=== PATIENT | female | born 1945 | race Asian ===

== ENCOUNTER 2018-04-14 14:22 | Day surgery (SDC) | payer MEDICAID ==
[~2018-04-14] VITALS: Ht 154.9 cm; Wt 54.6 kg
[~2018-04-14 14:22] MED LIST: CALC-729 PO; MECL12.584 PO; MULT-645 PO
[2018-04-14] MEDS ORDERED: normal saline 1000ml 1,000 ML IV SCH (15:05)
[2018-04-14] MEDS ORDERED: MECL12.584 PO (15:33)
[2018-04-14 15:59] VITALS: BP 138/73
[2018-04-14] MEDS ORDERED: LIDOcaine 1% (10mg/ml)w/preservative injection 20ml MDV ONE ×2 (17:09→17:21)
[2018-04-14 17:50] VITALS: BP 128/80
[2018-04-14] MEDS ORDERED: HYDROcodone/acetaminophen 10/325mg tab PO PRN (17:55)
[2018-04-14] MEDS ORDERED: HYDROcodone/acetaminophen 5mg/325mg tablet PO PRN (17:55)
[2018-04-14 18:05] VITALS: BP 137/83
[2018-04-14 18:20] VITALS: BP 140/77
[2018-04-14 18:35] VITALS: BP 136/76
== END 2018-04-14 19:05 | disposition home or self-care (01) ==
LOC: SSTAY O 14:22
PROVIDERS: ATTEND Internal Medicine Interventional Cardiology
DX: G45.9 Transient cerebral ischemic attack, unspecified (principal); I49.1 Atrial premature depolarization; G89.29 Other chronic pain; M19.90 Unspecified osteoarthritis, unspecified site; Z85.3 Personal history of malignant neoplasm of breast; Z90.12 Acquired absence of left breast and nipple; Z79.899 Other long term (current) drug therapy; Z82.0 Family history of epilepsy and other diseases of the nervous system
CPT/HCPCS: 33282; C1764; J2001; J7030; 99152

== ENCOUNTER 2019-02-17 15:36 | Emergency (ER) | payer MEDICAID ==
[~2019-02-17] VITALS: Ht 154.9 cm; Wt 56.0 kg
[~2019-02-17 15:36] MED LIST changes: -CALC-729 PO
[2019-02-17 16:13] LABS: BASOPHILS % (AUTO) 0.5 % (0-1); EOSINOPHILS % (AUTO) 1.3 % (0-6); HEMATOCRIT 36.6 % (35.0-45.0); HEMOGLOBIN 12.5 g/dl (12.0-16.0); LYMPHOCYTES % (AUTO) 29.8 % (21-51); MEAN CORPUSCULAR HEMOGLOBIN 32.7 PG (27.0-31.0); MEAN CORPUSCULAR HGB CONC 34.2 g/dL (33.0-36.5); MEAN CORPUSCULAR VOLUME 95.7 FL (78-98); MEAN PLATELET VOLUME 7.5 FL (7.4-10.4); MONOCYTES # (AUTO) 0.3 X10'3 (0-0.9); MONOCYTES % (AUTO) 8.9 % (2-12); NEUTROPHILS # (AUTO) 2.1 X10'3 (1.8-7.7); NEUTROPHILS % (AUTO) 59.5 % (42-75); PLATELET COUNT 174 X10'3 (140-440); RED BLOOD COUNT 3.82 X10'6 (4.20-5.60); WHITE BLOOD COUNT 3.5 X10'3 (4.5-11.0)
[2019-02-17 16:30] LABS: ALANINE AMINOTRANSFERASE 27 U/L (12-78); ALBUMIN 3.3 G/DL (3.4-5.0); ALBUMIN/GLOBULIN RATIO 0.8 (1.1-1.5); ALKALINE PHOSPHATASE 58 IU/L (46-116); ANION GAP 4 (8-16); ASPARTATE AMINO TRANSFERASE 28 U/L (10-37); BILIRUBIN,TOTAL 0.3 MG/DL (0.1-1.0); BLOOD UREA NITROGEN 12 MG/DL (7-18); BUN/CREATININE RATIO 20.3 (6.6-38.0); CALCIUM 8.7 MG/DL (8.5-10.1); CHLORIDE 107 MMOL/L (99-107); CREATININE 0.59 MG/DL (0.40-0.90); GLUCOSE 120 MG/DL (70-104); POTASSIUM 3.9 MMOL/L (3.5-5.1); SODIUM 142 MMOL/L (135-145); TOTAL CARBON DIOXIDE 31.1 MMOL/L (24-32); TOTAL PROTEIN 7.5 G/DL (6.4-8.2); eGFR > 90 ML/MIN
[2019-02-17 17:21] VITALS: BP 112/62
== END 2019-02-17 17:24 | disposition home or self-care (01) ==
LOC: ER 15:37
DX: R51 Headache (principal); R20.0 Anesthesia of skin; R42 Dizziness and giddiness; Z98.890 Other specified postprocedural states; Z85.3 Personal history of malignant neoplasm of breast; Z79.899 Other long term (current) drug therapy; Z90.10 Acquired absence of unspecified breast and nipple
CPT/HCPCS: 36415; 70450; 80053; 85025; 99284

== ENCOUNTER 2024-12-20 21:19 | Inpatient (IN) | payer MEDICAID ==
[~2024-12-20] VITALS: Ht 152.4 cm; Wt 48.7 kg
[~2024-12-20 21:19] MED LIST changes: +MECL-231 PO; -MECL12.584 PO
--- NOTE | 2024-12-20 21:50 | ELECTROCARDIOGRAPH REPORT ---
[facility] Test Date: 2024-12-20 Test Time: 21:48:34 Pat Name: TROY MCCLURE Department: [facility] Patient ID: [facility]-[id number] Room: ED 15 Gender: F Tone Regulator: : 1945 Requested By: EMILY ZARATE Order Number: [id number] Reading MD: Dr. Emily Zarate Measurements Intervals [place] Rate: 68 P: 67 CT: 164 QRS: 72 QRSD: 159 T: 69 QT: 435 QTc: 463 Interpretive Statements Sinus rhythm Nonspecific intraventricular conduction delay Electronically Signed On 12-21-2024 1:39:[address] Emily Zarate Please click the below link to view image of tracing.
[2024-12-20 22:27] LABS: MEAN PLATELET VOLUME 8.0 FL (7.4-10.4); RED CELL DISTRIBUTION WIDTH 13.7 % (11.5-14.5)
[2024-12-20 22:40] LABS: CREATININE 0.44 MG/DL (0.40-0.90); TOTAL CARBON DIOXIDE 25.0 MMOL/L (24-32); eCRCL 72 ML/MIN; eGFR > 90 ML/MIN
--- NOTE | 2024-12-20 23:21 | Physician Documentation ---
History of Present Illness ~ Chief Complaint: Dizziness Stated Complaint: DIZZINESS Time Seen by MD: 23:17 OK to notify your PCP?: Yes Primary Medical Doctor: Moni PLUMMER Source: patient, RN/, RN notes reviewed, old records Mode of Arrival: POV Exam Limitations: no limitations HPI BED 15 This patient is an 79 y/o female brought in by her daughter for chief complaint of dizziness and nausea. Patient states that her symptoms first started with dizziness, and then developed nausea. She states that her symptoms reminded her of when she was previously diagnosed with Vertigo. Daughter is concerned it may be food poisoning however, as patient has also had two episodes of diarrhea this evening. She denies any recent cold/coughs, ear infections, or other illnesses. She is ambulating, though feels slightly off balance due to her dizziness. Patient denies any other associated symptoms at this time. Patient denies any other alleviating or exacerbating factors. Medication Reconciliation Allergies: Coded Allergies: No Known Allergies (Unverified , 02/20/16) Scheduled Meclizine Hcl (Meclizine Hcl), 1 TABLET PO TID, (Reported) Multivitamin with Minerals (Multiple Vitamin), 1 TAB PO DAILY, (Reported) Miscellaneous Medications Home Med List (No Home Medications), (Reported) Past Medical History Past Medical History: Vertigo, Breast Cancer Past Surgical History: other Patient History: FH: Parkinson's disease FATHER, , Age: 60 years and older, Cause: Old age Smoking Status: Never smoker Alcohol Use: None Drug Use: none Lives with: Family Lives In: Home Review of Systems All Other Systems at this time: Reviewed and Negative Neurological: Reports: dizziness Physical Exam Vital Signs: RN Vital Signs have been reviewed: Yes, Heart Rate: 71, Respiratory Rate: 16, BP: 135/75, Pulse Oximetry: 100, Weight: 107.000 Oxygen Flow Rate: 0 Physical Exam General: The patient is well developed, well nourished, nontoxic appearing and is in no acute distress. Skin: [place], warm and dry with no rashes. HEENT: Head was normocephalic and atraumatic. Eyes - pupils equal, round, lee ctive to light and accommodation. Extraocular movements were intact. Conjunctivae were nonicteric. Ears - bilateral tympanic membranes were normal. The mouth and oropharynx were clear with moist mucous membranes. There were no pharyngeal exudates or erythema. Neck: Supple and nontender. There was no jugular venous distention, lymphadenopathy, thyromegaly or masses. Chest: Clear to auscultation bilaterally without wheezes, rales or rhonchi. No accessory muscle use. No dullness to percussion. Heart: Rate regular and rhythmic. S1, S2. No murmurs. Palpation of the chest wall was normal. No rubs or thrills. Abdomen: Soft, nontender and nondistended. Positive bowel sounds. No guarding or rebound. No hepatosplenomegaly or palpable masses. Extremities: No cyanosis, clubbing or edema. The patient moves all extremities. Pulses were equal and symmetric. Neurologic: Cranial nerves II-XII were intact. Sensation was intact to light touch throughout. Motor strength was 5/5 in all four extremities. Deep tendon reflexes were intact in both upper and lower extremities. Psychologic: The patient was oriented to person, place and time. The patient demonstrated appropriate judgement and insight. Progress Progress Note 0008: Patient observed over the past hour and on re-evaluation, she states her symptoms have greatly improved. She now reports only slight dizziness when turning head to the right. 0025: Case discussed over phone with tele-neurologist who recommends admission for MRI in the morning. 0100: Case discussed with hospitalist who agrees to evaluate patient for admission. Results/Orders Reviewed/noted all lab results: Yes Results/Orders Orders - EMILY ZARATE MD Electrocardiogram (12/20/24 21:43) [place] Prov.Neuro Consult (12/21/24 00:07) Page Hospitalist (12/21/24 00:27) Fill Out Med Reconciliation (12/21/24 00:27) Ua W/Microscopic, Cult If Ind (12/21/24 04:50) Completed Orders - EMILY ZARATE MD Electrocardiogram (12/20/24 21:43) Cbc/Diff (12/20/24 21:43) BMP (12/20/24 21:43) Lipase (12/20/24 21:43) CMP (12/20/24 21:43) Meclizine Tablets (Antivert Tablet) (12/21/24 00:10) Aspirin 81mg Chew Tablet (Aspirin 81mg C (12/21/24 00:30) Hgb A1c (12/20/24 21:59) MG (12/20/24 21:59) PBNP (12/20/24 21:59) TSH (12/20/24 21:59) Medications Received in ER Medications (Trade) Dose Ordered Sig/Miguel Route PRN Reason Start Time Stop Time Status Last Admin Dose Admin (Antivert tablet) 25 mg ONCE ONCE PO 12/21/24 00:10 12/21/24 00:11 DC 12/21/24 00:42 25 MG (aspirin 81MG chew tablet) 324 mg ONCE ONCE PO 12/21/24 00:30 12/21/24 00:31 DC 12/21/24 00:44 324 MG Sodium Chloride 1,000 ml @ 100 mls/hr Q10H IV 12/21/24 01:15 12/21/24 02:08 100 MLS/HR (K-DUR tablet) 20 meq Q4H PRN PO Potassium 3.1-3.4 12/21/24 01:15 12/24/24 01:14 12/21/24 06:39 20 MEQ Vital Signs 12/20/24 12/21/24 21:40 00:04 Pulse 71 65 Resp 16 12 B/P (MAP) 135/75 115/71 (86) Pulse Ox 100 98 O2 Flow Rate 0 Laboratory Tests Test 12/20/24 21:59 12/20/24 22:01 White Blood Count 5.4 Red Blood Count 3.63 L Hemoglobin 12.1 Hematocrit 35.1 Mean Corpuscular Volume 96.5 Mean Corpuscular Hemoglobin 33.2 H Mean Corpuscular Hemoglobin Concent 34.4 Red Cell Distribution Width 13.7 Platelet Count 160 Mean Platelet Volume 8.0 Neutrophils (%) (Auto) 84.9 H Lymphocytes (%) (Auto) 9.0 L Monocytes (%) (Auto) 5.4 Eosinophils (%) (Auto) 0.4 Basophils (%) (Auto) 0.3 Neutrophils # (Auto) 4.6 Lymphocytes # (Auto) 0.5 L Monocytes # (Auto) 0.3 Eosinophils # (Auto) 0.0 Basophils # (Auto) 0.0 CBC Comment Prothrombin Time 10.3 INR International Normalized Ratio 1.0 Activated Partial Thromboplast Time 22 Coagulation Comments Sodium Level 135 Potassium Level 3.4 L Chloride Level 100 Carbon Dioxide Level 25.0 Anion Gap 10 Blood Urea Nitrogen 10 Creatinine 0.44 Estimated GFR/1.73 m2 > 90 BUN/Creatinine Ratio 22.7 H Glucose Level 148 H Hemoglobin A1c 5.5 Calcium Level 8.7 Magnesium Level 2.0 Total Bilirubin 0.5 Aspartate Amino Transf (AST/SGOT) 24 Alanine Aminotransferase (ALT/SGPT) 21 Alkaline Phosphatase 48 Pro-B-Type Natriuretic Peptide 70 Total Protein 7.0 Albumin 3.4 Globulin 3.6 Albumin/Globulin Ratio 0.9 L Lipase 55 Thyroid Stimulating Hormone (TSH) 2.09 Chemistry Comments Glucometer 169 H Re-Evaluation Re-Evaluation : Re-Evaluation: Unchanged Progress Patient was seen and examined. She has been given reassurance. Patient had a language barrier and was also difficult to evaluate. The patient's exam was limited because she could not follow commands. Patient received meclizine and was feeling a bit better. Laboratory work was then obtained showing slight low potassium at 3.4 otherwise chemistry was within normal limits. Patient's CBC showed no signs of infection no signs of anemia. Urinalysis was also within normal limits. I spoke to Neurology who recommended admission for stroke workup. She recommended CAT scan and MRI. Patient appeared to be doing well and her daughter translated for us. unhairing machine operator interpretation shows normal sinus rhythm heart rate 70s, no ectopy, normal, my interpretation. Pulse oximetry monitor interpretation shows normal oxygenation at 99% room air, normal, my interpretation. 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 Emily Zarate Measurements Intervals [place] Rate: 68 P: 67 [place]: 164 QRS: 72 QRSD: 159 T: 69 QT: 435 QTc: 463 Interpretive Statements Sinus rhythm Nonspecific intraventricular conduction delay Electronically Signed On 12-21-2024 1:39:[address] Emily Zarate Please click the below link to view image of tracing. EKG Date and Time:12/20/242147 Electronically Signed by: EMILY ZARATE MD Date and Time: 12/21/24 0139 NO PRIMARY CARE PROVIDER~ cc: ~ Medical Decision Making Additional info obtained from: old records Differential Dx:Considerations: Include: CVA, electrolyte imbalance, labyrinthitis, TIA, vertigo central, vertigo peripheral, vestibular neuronitis, other Departure Time of Disposition: 01:00 Admitted to Inpatient Unit: yes, to hospitalist Admission Level of Care: Neuro with Tele Impression: Primary Impression: Dizziness Additional Impression: Vertigo Condition: Guarded Referrals: NO PRIMARY CARE PROVIDER (PCP) Education Educated: Patient, Family Educated regarding: diagnosis Critical Care Note Total Time (mins): 30 Critical Care Note The very real possibility of a deterioration of this patient's condition required the highest level of my preparedness for sudden, emergent intervention. I provided critical care services, which included medication orders, frequent reevaluations of the patient's condition and response to treatment, ordering and reviewing test results, and discussing the case with various consultants. Excludes time spent performing separately billable procedures. The critical care time associated with the care of the patient was 30 minutes. Signature Scribe Signature: Scribed for Emily Zarate MD by Manda Rea. 12/20/24 23:45 Attestation: The note accurately reflects work and decisions made by me.Emily Zarate MD 12/20/24 23:20 EMILY ZARATE MD Dec 20, 2024 23:20
[2024-12-21] VITALS (8 sets, daily range): BP systolic 102–131; BP diastolic 52–71; PULSE 59–78; RESP 10–22; TEMP 97.1–98.6; O2SAT 97–100
--- NOTE | 2024-12-21 00:39 | [facility] CONSULT REPORT ---
[facility] Procedure Note [facility] Procedure Note Consult [facility] Note # Demographics Consult Type: General Neurology Patient Location: Emergency Room First Name: TROY Last Name: KAMI Date of : 1945 Age: 79 Gender: Female Facility: [facility] Time of Initial Page (): 12/21/2024 00:08 Time of Return Call (): 12/21/2024 00:09 Phone Agreement: - phone consult deemed mutually sufficient for patient care # HPI History: 79 y/o Persian speaking female presents with dizziness and gait instability. She has had diarrhea today. # Assessment Impression: dizziness # Plan Labs: - CBC - comprehensive metabolic panel - TSH - ua Imaging: (urgency: routine): - CT Head without contrast - CT Angiogram Head and CT Angiogram Neck - MRI Brain without contrast Therapy/Evaluation: - PT/OT evaluation Other: - If patient has any neurological deterioration please call me back immediately # Logistics Attestation of consult completion: The patient is located at: [facility]. I performed this phone consultation from my offsite office Total time spent in telemedicine encounter: I spent 10 minutes in reviewing clinical data and/or imaging, obtaining history, communicating with the onsite care team, and in preparation of this report. # Demographics First Name: TROY Last Name: KAMI Facility: [facility] Electronically signed at 12/21/2024 00:38 ( Time) by Jessica Oconnell DO Neuro Consult Order placed for: Yes ZEHRA OCONNELL DO Dec 21, 2024 00:39
[2024-12-21] MEDS ORDERED: magnesium sulf-water 4G/100mL 100 ML IV PRN (01:15)
[2024-12-21] MEDS ORDERED: magnesium Cl slow-release 64mg tablet PO PRN (01:15)
[2024-12-21] MEDS ORDERED: magnesium sulf-water 2g/50mL 50 ML IV PRN (01:15)
[2024-12-21] MEDS ORDERED: ondansetron/PF 4mg/2ml inj IV PRN (01:15)
[2024-12-21] MEDS ORDERED: potassium Cl 20 mEq SR tablet PO PRN (01:15)
[2024-12-21] MEDS ORDERED: magnesium hydroxide 30ml (MOM) UD suspension PO PRN (01:15)
[2024-12-21] MEDS ORDERED: mag hydrox/Alum hydrox/simeth 30ml oral suspension PO PRN (01:15)
[2024-12-21] MEDS ORDERED: potassium Cl 40MEQ/1/2NS 520ml 520 ML IV PRN (01:15)
[2024-12-21] MEDS ORDERED: HYDROcodone/acetaminophen 10/325mg tab PO PRN (01:15)
[2024-12-21 01:39] LABS: APTT 22 SECONDS (22-32); INR 1.0 INR
[2024-12-21 01:46] LABS: PRO BRAIN NATRIURETIC PEPTIDE 70 PG/ML (0-450)
[2024-12-21] MEDS ORDERED: NO HOME MEDS (02:04)
[2024-12-21] MEDS: normal saline 1000ml 1,000 ML IV SCH (02:08)
--- NOTE | 2024-12-21 03:33 | HISTORY AND PHYSICAL-Residence ---
History & Physical Providers to CC Resident Creating Document: MYRA GALE, RES ~ History of Present Illness Primary Medical Doctor: Moni PLUMMER Reason for Admit\Complaint: Dizziness, vomiting, diarrhea History of Present Illness This is a 79-year-old female with a history of breast cancer s/p mastectomy presents to the ED with a chief complaint of dizziness, vomiting, diarrhea since one day. Patient speaks Cantonese and history was taken using remotely piloted vehicle controller services with Mr. Painting ([id number]). Patient states that she has a longstanding history of dizziness due to vertigo but has never lost consciousness and not had weakness or sensory deficits. She has had about four episodes of vomiting and four episodes of diarrhea today and was very dehydrated and felt more dizzy. She has eaten some pre heated chicken and vegetable yesterday after which the diarrhea started. She denies any abdominal pain but has abdominal discomfort. Diarrhea was watery, coffee-ground in color not associated with any blood. She also states that she has been having loss of appetite, dyspepsia since August this year and lost about 20 lb in the last three months. She has never had endoscopy or a colonoscopy before. She denies any other fever, shortness of breath, pain in any other extremities. She denies any travel or sick contacts. She denies any stroke-like symptoms, chest pain, palpitations Allergies: Coded Allergies: No Known Allergies (Unverified , 02/20/16) Home Medications Home Medications Active Reported No Home Medications (Home Med List) Each Meclizine Hcl 12.5 Mg Tablet 1 Tablet PO TID Multiple Vitamin (Multivitamin with Minerals) 1 Each Tablet 1 Tab PO DAILY Past Medical History Past Medical History Breast cancer Past Surgical History Surgical History Comment Mastectomy Family History Family History: FH: Parkinson's disease FATHER, , Age: 60 years and older, Cause: Old age Past Social History Social History Comment Denies smoking, alcohol, drugs Alcohol Use: None Drug Use: None Lives with: Family Lives In: Home ROS All Other Systems: Reviewed and Negative ROS Reviewed in full and negative except for the pertinent positives in HPI Neurological: Reports: dizziness Exam Vitals: Vital Signs Date Time Temp Pulse Resp B/P (MAP) Pulse Ox O2 Delivery O2 Flow Rate FiO2 12/21/24 02:50 65 12/21/24 02:02 12 111/65 (80) 98 12/20/24 21:40 0 General: General: Thin built, frail appearing. Awake , alert, and oriented x4, resting comfortably in the bed, in no acute distress . HEENT: Atraumatic, normocephalic, EOMI, anicteric sclera B; pink conjunctiva; PERRLA, normal oropharynx, moist oral and nasal mucosa. Tympanic membrane , nose , throat clear. Neck: Trachea midline. Supple, full range of motion, no JVD, bruit , hepatojugular reflex , lymphadenopathy or masses, or other lesions Cardiac: Regular rhythm, regular rate no murmurs, rubs, or gallops. Normal S1 and S2, no S3 noticed. PMI is normal. Respiratory: Equal breath sounds bilaterally, no tachypnea; lungs clear to auscultation bilaterally, no wheezing ,rub or rales, or crackles. Chest wall is symmetric and without deformity. No signs of trauma. Chest wall is nontender. No signs of respiratory distress. Resonance is normal upon percussion bilaterally. Gastrointestinal: Abdomen symmetric, non-distended, soft, mild tenderness on palpation of right lower quadrant, normal bowel sounds x4 quadrant, normoactive, no hepatosplenomegaly , no masses , no bruit, no flank pain bilaterally. No voluntary guarding, rebound, or rigidity. No tenderness to percussion. No pulsatile masses. Equal femoral pulses. No Martini's sign or McBurney point tenderness. Back; no CVA tenderness bilaterally, no deformities. Neck and back are without deformity as well. No tenderness noted on palpation of the spinous processes. Spinous processes are midline. Cervical, thoracic, and lumbar paraspinal muscles are not tender and are without spasm. : normal external genitalia, without lesions, swelling, masses or tenderness. Musculoskeletal: Extremities, normal range of motion, non-tender, muscle strength 5/5 x 4. Negative Homans signs bilaterally on lower extremity. Distal pulses full symmetrical, no clubbing, cyanosis , edema. Neurological: Speech is clear, alert, and oriented x 4. No motor or sensory deficit, deep tendon reflexes normal, cerebellar intact. Cranial nerves II-XII intact. Psych: Alert and or appropriate, normal affect. Vascular: Good distal pulses, which are equal x4; capillary refill less than 2 seconds. Skin: Warm, dry, no pallor, no rash or petechiae. Diagnostic Data Last Recorded Lab Results: 12/20/[id number]/[id number] Diagnostic Data: Laboratory Tests Test 12/20/24 21:59 Prothrombin Time 10.3 SECONDS (9.0-12.0) INR International Normalized Ratio 1.0 INR Activated Partial Thromboplast Time 22 SECONDS (22-32) Coagulation Comments Advance Care Planning Advanced Care planning: Add on additional 30 min Additional Plan Gastroenteritis, viral versus bacterial Dizziness secondary to vomiting, diarrhea No leukocytosis, lactic acid, procalcitonin, stool cultures, ova and parasite, stool occult are pending. Patient does has high neutrophils and low lymphocytes may be due to gastroenteritis. 1 L lactated ringer bolus followed by maintenance fluids NS at the rate of 100 mL/hour. Orthostatic vitals pending Lipase, TSH, BNP, LFT, RFTs are within normal limits. Weight loss, loss of appetite Patient may benefit from outpatient cancer workup for GI malignancy given history of breast cancer, dyspepsia and loss of appetite. Patient never had endoscopy or colonoscopy in the past Mild hypokalemia Replace per protocol History of vertigo Continue meclizine 25 p.o. t.i.d. daily Neurology was consulted by ER physician who recommended stroke workup including CT head, CTA and MRI. However there is no focal weakness or sensory deficits Re-evaluate in the a.m. and order additional imaging if dizziness is not better with hydration Code Status: DNR DVT Prophylaxis: Heparin Analgesia/Sedation: [place] p.r.n. Lines/Tubes: PIV Gi Prophylaxis: None Nutrition: Regular diet PT: Yes Prognosis: Guarded Disposition: Admit to PCU Myra Azar MD Internal Medicine Resident PGY-1 Pt was seen and discussed with the resident team Agree with assessment and plan as documented Date of Service: Dec 21, 2024 Billing Provider: BAILEE MIMS MD,MYRA AZAR, RES Dec 21, 2024 03:33 BAILEE MIMS MD Dec 21, 2024 04:33
[2024-12-21] MEDS: metroNIDAZOLE-Flagyl 500mg/NS 100 ML IV SCH (04:40)
[2024-12-21] MEDS ORDERED: ciprofloxacin/D5W 200mg/100mL 100 ML IV SCH (04:40)
--- NOTE | 2024-12-21 05:29 | RADIOLOGY REPORT ---
EXAM: CT CT HEAD INDICATION: r/o stroke DIZZINESS AND NAUSEA TECHNIQUE: CT of the head without intravenous contrast. Coronal and sagittal reformatted images are s ubmitted. Radiation Dose : 1. Head: CT Dose: CTDI volume is 65.8 mGy. Dose-length product is mGy*cm The dose indicators for CT are the volume Computed Tomography (CT) Dose Index (CTDIvol) and the Dose Length Product (DLP), and are measured in units of mGy and mGy-cm, respectively. These indicators are not patient dose, but values generated from the CT scanner acquisition factors. The report includes radiation exposure data for exposures received during this examination. All CT scans at this medical facility are performed using dose modulation techniques as appropriate to a performed exam including the following: Automated exposure control was utilized; adjustment of the MA and/or KV according to patient size; and use of iterative reconstruction technique. COMPARISON: None FINDINGS: There is no evidence of acute intracranial hemorrhage, extra-axial collection, mass effect, midline s hift, herniation or hydrocephalus. There are periventricular and subcortical hypodensities, nonspecific, but likely reflecting sequelae of chronic microvascular ischemic changes. The ventricles, sulci and cisterns are age appropriate. The rush-white differentiation is intact. The visualized paranasal sinuses and mastoid air cells are clear. No depressed calvarial fracture. The surrounding soft tissues are unremarkable. IMPRESSION: 1. No evidence of acute intracranial abnormality.
--- NOTE | 2024-12-21 05:44 | RADIOLOGY REPORT ---
EXAM: CT Abdomen Without Intravenous Contrast CLINICAL INDICATION: Pain TECHNIQUE: Axial computed tomography images of the abdomen without intravenous contrast. This CT ex am was performed using one or more of the following dose reduction techniques: automated exposure co ntrol, adjustment of the mA and/or kV according to patient size, and/or use of iterative reconstructi on technique. COMPARISON: No relevant prior studies available. FINDINGS: LUNG BASES: Unremarkable. No mass. No consolidation. MEDIASTINUM: Small esophageal hiatal hernia. LIVER: Unremarkable. GALLBLADDER AND BILE DUCTS: Unremarkable. No calcified stones. No ductal dilation. PANCREAS: Unremarkable. No ductal dilation. SPLEEN: Unremarkable. No splenomegaly. ADRENALS: Unremarkable. No mass. KIDNEYS AND URETERS: Mild bilateral hydronephrosis. STOMACH AND BOWEL: Fecal retention in the colon consistent with constipation. No obstruction. No m ucosal thickening. INTRAPERITONEAL SPACE: Unremarkable. No free air. No significant fluid collection. BONES/JOINTS: Multilevel endplate degenerative changes disease of the visualized spine. No acute fr acture. No dislocation. SOFT TISSUES: Unremarkable. VASCULATURE: Scattered calcified atherosclerotic disease of aorta. No abdominal aortic aneurysm. LYMPH NODES: Unremarkable. No enlarged lymph nodes. IMPRESSION: 1. Mild bilateral hydronephrosis. 2. Small esophageal hiatal hernia. 3. Fecal retention in the colon consistent with constipation.
[2024-12-21 06:31] LABS: LEUKOCYTE ESTERASE ,URINE SMALL (Neg); NITRITES, URINE NEGATIVE (Neg); OCCULT BLOOD,URINE NEGATIVE (Neg)
[2024-12-21 06:33] LABS: UA COLLECTION TYPE NON-SPECIFIED
[2024-12-21] MEDS: potassium Cl 20 mEq SR tablet PO PRN (06:39)
[2024-12-21 06:51] LABS: SQUAMOUS EPITHELIAL CELL,UR NONE SEEN /LPF (FEW)
[2024-12-21] MEDS: K and/or MAG REPLACEMENT MC SCH (08:00)
[2024-12-21] MEDS: ciprofloxacin/D5W 200mg/100mL 100 ML IV SCH (09:43)
[2024-12-21] MEDS: docusate sod 100mg capsule PO SCH ×2 (09:43→19:02)
[2024-12-21] MEDS: heparin, porcine 5000 units/ml vial SQ SCH (09:51)
[2024-12-21] MEDS: PERFLUTREN PROTEIN-A MICROSPHR (Optison) 0.22 MG/ML 3ML VIAL IV ONE (11:20)
[2024-12-21] MEDS ORDERED: MELO-100 PO (17:35)
--- NOTE | 2024-12-21 18:11 | PROGRESS NOTE- Residence ---
Progress Note - Resident Providers to CC Resident Creating Document: SHERRY ARAGONERICA ~ Antibiotic Timeout Antibiotic Ordered?: Yes Subjective Patient speaks Mandarin and a little bit of Chadian with understanding it. She stated that she used to have constipation for which she is taking Docusate prescribed by her PCP Dr Vogt at [facility], and she met Dr Marcelino, associate professor of geography for her irregular heart beat but denied for any diagnosis of A fib before. She endorsed that she ate some meal before she got the vomiting x 4 times and diarrhea x 3-4 times yesterday. She felt uncomfortable abdomen but no abdominal pain. She is living by herself at home and her daughter is living in the separate houses who comes to the house to help her. She has been having the Dizziness but not headaches for everyday and did not remember since when. She never had CVA, CAD and SC before. She denies any FND and tingling and numbness over the limbs. She can walk by herself. She stated that she wonders if she had a vertigo which could be from the disequilibrium of fluids inside her inner ear for which she never experienced before. Objective Vital Signs Date Time Temp Pulse Resp B/P (MAP) Pulse Ox O2 Delivery O2 Flow Rate FiO2 12/21/24 17:27 Room Air 12/21/24 17:05 97.2 68 17 114/53 (73) 98 12/20/24 21:40 0 Result Diagram: 12/20/24215812/20/242158 Vitals were stable at the moment with temp 97.2 F, VA 60/minute, RR 70/minute, BP 114/53 mm Hg, pulse oximetry 98% on room air. On exam, General: Well alert, well oriented, not confused, not agitated, not in acute distress, well cooperated during the physical. HEENT: Conjunctive are pink, sclerae clear, no icterus, pupil is equal in both sides, reactive to light, no ear discharge, no pharyngeal erythema or an edema, mouth and lips are moist. Neck: Supple, no JVD, no lymphadenopathy and thyromegaly. 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 INSPECTOR: No focal neurological deficits, no motor and sensory weakness in all 4 extremities, could move all 4 extremities Musculoskeletal: No joint swelling, deformities, inflammations, and no scoliosis and back tenderness Skin: No active skin lesions and rashes Coagulation Studies Laboratory Tests Test 12/20/24 21:59 Prothrombin Time 10.3 SECONDS (9.0-12.0) INR International Normalized Ratio 1.0 INR Activated Partial Thromboplast Time 22 SECONDS (22-32) Coagulation Comments Assessment Assessment An 79-year-old cantonese and mandarin speaking female with a history of breast cancer s/p mastectomy presents to the ED with a chief complaint of dizziness, vomiting, diarrhea over one day. Plan Plan # Infectious Gastroenteritis # Possible fecal impaction with incontinence leakage # Electrolytes imbalances- Mild hypokalemia -Replace per protocol for Electrolytes imbalances -CT AP w/o IV Contrast showed IMPRESSION: 1. Mild bilateral hydronephrosis. 2. Small esophageal hiatal hernia. 3. Fecal retention in the colon consistent with constipation. -continue PO Docusate 100 mg BID, and soup karen enema one time and try with another one if there is no improvement -Continue IV Fluid replacement -continue ciprofloxacin metronidazole-day two -follow up with the pending stool studies # Dizziness secondary to vomiting, diarrhea, to Rule out CVA #History of vertigo -Neurology was consulted by ER physician who recommended stroke workup including CT head, CTA and MRI. -pending radiology report for head and neck MRA, head MRI, and 2D echocardiogram cardiology report -continue meclizine 12.5 mg q.8 hours as needed # Weight loss, loss of appetite # Hx of Breast cancer, s/p mastectomy -Patient may benefit from outpatient cancer workup for GI malignancy given history of breast cancer, dyspepsia and loss of appetite. -Patient never had endoscopy or colonoscopy in the past -F/up w/ CT/ MRI head for possible mets lesions Code Status: DNR DVT Prophylaxis: Heparin Analgesia/Sedation: [place] p.r.n. Lines/Tubes: PIV Gi Prophylaxis: None Nutrition: Regular diet PT: Yes Prognosis: Guarded Disposition: Continue medical management IV fluids, enema and laxative, recommend outpatient oncology and GI follow up, follow up with pending imaging and echocardiogram, PT eval and DC plan. Resident MD attestation: Patient was seen, examined and discussed with attending MD, Dr. Haleigh ARAGON MD Internal Medicine Resident, PGY2 [facility] Date of Service: Dec 21, 2024 Billing Provider: JESSIE SALDANA MD, TIN, RES Dec 21, 2024 18:11
[2024-12-21] MEDS ORDERED: GLUC1CAP8 PO (18:18)
[2024-12-21] MEDS ORDERED: MULT-1133 PO (18:18)
[2024-12-21] MEDS ORDERED: CYAN-116 PO (18:18)
[2024-12-21] MEDS ORDERED: CARB15DR EACHEYE (18:18)
[2024-12-21] MEDS ORDERED: CALC-853 PO (18:18)
[2024-12-21 22:29] LABS: OCCULT BLOOD STOOL NEGATIVE (Neg)
[2024-12-22 04:58] LABS: MEAN PLATELET VOLUME 7.6 FL (7.4-10.4); RED CELL DISTRIBUTION WIDTH 14.2 % (11.5-14.5)
[2024-12-22 05:16] LABS: CHOL/HDL RATIO 1.8 (0.00-4.99); CREATININE 0.59 MG/DL (0.40-0.90); LDL CHOLESTEROL 46 MG/DL (50-100); TOTAL CARBON DIOXIDE 24.9 MMOL/L (24-32); eCRCL 54 ML/MIN; eGFR > 90 ML/MIN
[2024-12-22 06:00] VITALS: BP 127/83; PULSE 86; RESP 23; TEMP 98.5; O2SAT 96
[2024-12-22] MEDS: multivitamins, therapeutics tablet PO SCH (07:39)
[2024-12-22] MEDS: HYDROcodone/acetaminophen 5mg/325mg tablet PO PRN (08:59)
--- NOTE | 2024-12-22 09:43 | CARDIOLOGY REPORT ---
APPROVED REPORT EXAM: Comprehensive 2D, Doppler, and color-flow Echocardiogram. Patient Location: 3[address] Blood Pressure: 114/53 mmHg Heart Rate: 67 bpm Rhythm: SINUS w/FREQUENT PVCs Indications CONGESTIVE HEART FAILURE Remote Operations Producer: Veena Marcelino DO Previous echo: none 2D Dimensions RVDd 3.3 cm LA Diam4.7 cm IVSd 1.1 (0.7-1.1cm) LVDd 4.1 cm PWd 0.6 (0.7-1.1cm) IVSs 1.3 (0.8-1.2cm) LVDs 2.2 (2.5-4.0cm) PWs 1.2 (0.8-1.2cm) LVOT Diameter 1.84 (1.8-2.4cm) LVEF(%) 78.2 (>50%) Ao Asc Diam.3.54 cmIVC 19.48 mm FS (%) 46.4 % SV 57.0 ml CO 4.0 L/min M-Mode Dimensions Left Atrium(MM) 2.83 (2.5-4.0cm) Aortic Root 2.92 (2.2-3.7cm) Aortic Cusp Exc 1.58 (1.5-2.0cm) MV EPSS 0.4 (<0.5cm) Biplane 2D LA Volumes LA ESV Index 20.36 mL/m2 Aortic Valve AoV Peak Mark. 229.9 cm/s AoV VTI 45.2 cm AO Peak GR. 21.1 mmHg AO Mean GR. 10 mmHg LVOT VTI 36.18 cm LVOT Peak Mark. 176.7 cm/s ESTEFANIA(VTI)/BSA 2.12 cm2/m2 ESTEFANIA (VTI) 2.12 cm2 AI P 1/2 Time 476 ms Mitral Valve MV E Velocity 102.9 cm/s MV Peak Gr. 4 mmHg MV DECEL TIME 232 ms MV A Velocity 72.3 cm/s MV PHT 68 ms E/A Ratio 1.4 MVA (PHT) 3.24 cm2 MV ORga543.3 cm/s TDI Medial E' P. V 14.69 cm/s E/Medial E' 7.0 Tricuspid Valve TR P. Velocity 307 cm/s RAP ESTIMATE 10 mmHg TR Peak Gr. 38 mmHg RVSP 48 mmHg Pulmonary Vein S1 Velocity 33.7 cm/s D2 Velocity 54.3 cm/s PVa Xotumazz84.4 cm/s PVa [id number] msec LEFT VENTRICLE Normal LV size and wall thickness. Overall systolic function is hyperdynamic. Overall LVEF is 75-80%. RIGHT VENTRICLE RV is mildly dilated with normal systolic function. RVPS is estimated at 48 mmHg. ATRIA LA size is normal. AORTIC VALVE Trileaflet AV appears mildly sclerotic without stenosis. Mild insufficiency. MITRAL VALVE Mild MV annular calcification without stenosis. Mild regurgitation. TRICUSPID VALVE TV appears structurally normal with moderate regurgitation. PULMONIC VALVE Normal PV without stenosis, physiologic insufficiency. GREAT VESSELS Aortic root is normal in size. Ascending aorta is normal in size. The IVC is normal in size and colla pses greater than 50% with inspiration. PERICARDIUM Normal pericardium. No effusion. Other Information Study Quality: Adequate Conclusion Overall LVEF is 75-80%. Normal LV size and wall thickness. Overall systolic function is hyperdynamic. RV is mildly dilated with normal systolic function. RVPS is estimated at 48 mmHg. Trileaflet AV appears mildly sclerotic without stenosis. Mild insufficiency. Mild MV annular calcification without stenosis. Mild regurgitation. TV appears structurally normal with moderate regurgitation. Normal PV without stenosis, physiologic insufficiency. Normal pericardium. No effusion.
[2024-12-22 10:00] VITALS: BP 95/47; RESP 19; TEMP 97; O2SAT 96
--- NOTE | 2024-12-22 14:50 | RADIOLOGY REPORT ---
PROCEDURE: MR MRA NECK INDICATION: CVA, STENOSIS Exam Date: 12/21/2024 03:18 PM COMPARISON: None TECHNIQUE: MRA neck without intravenous contrast. 3D image postprocessing was performed on a dedicated workstation and images were used for interpretat ion and reporting. FINDINGS: MRA neck: The visualized thoracic aortic arch and proximal great vessels are unremarkable. There is no evidenc e of hemodynamically significant stenosis involving the bilateral common and internal carotid arterie s. The cervical vertebral arteries are patent. There is no evidence of dissection. IMPRESSION: 1. No evidence of hemodynamically significant cervical stenosis or dissection. HS:Y
--- NOTE | 2024-12-22 14:53 | RADIOLOGY REPORT ---
PROCEDURE: MR MRI HEAD INDICATION: CVA, STENOSIS EXAM DATE: 12/21/2024 03:18 PM COMPARISON: CT CT HEAD on DOS: 12/21/24 TECHNIQUE: MRI of the brain without intravenous contrast. FINDINGS: Diffusion weighted images of the brain demonstrate no evidence of acute infarction. There is no evidence of acute intracranial hemorrhage, extra-axial collection, mass effect, midline s hift, herniation or hydrocephalus. The ventricles, sulci and cisterns appear age appropriate. Moderate changes of chronic microvascular ischemic disease. There are no signal abnormalities on the susceptibility weighted sequences. The major vascular flow voids are present. The visualized paranasal sinuses and mastoid air cells are clear. The surrounding soft tissues and o sseous structures are unremarkable. IMPRESSION: 1. No evidence of acute infarction, intracranial hemorrhage, mass effect or hydrocephalus. Moderate c hanges of chronic microvascular ischemic disease. HS:Y
--- NOTE | 2024-12-22 14:54 | RADIOLOGY REPORT ---
PROCEDURE: MR MRA HEAD INDICATION: Dizziness Exam Date: 12/21/2024 03:18 PM COMPARISON: None TECHNIQUE: MRA head without intravenous contrast. 3D image postprocessing was performed on a dedicated workstation and images were used for interpretat ion and reporting. FINDINGS: MRA head: There is preserved flow within the bilateral distal internal carotid arteries. There is preserved fl ow within the anterior and middle cerebral arteries. There is preserved flow within the vertebral ar teries, basilar artery, cerebellar arteries and posterior cerebral arteries. There is no evidence of hemodynamically significant intracranial stenosis, proximal occlusion or aneurysm. No abnormal veno us signal is seen. IMPRESSION: 1. No evidence of hemodynamically significant intracranial stenosis, proximal occlusion or aneurysm. HS:Y
[2024-12-22] MEDS: polyvinyl alcohol eye drops 15ML BOTTLE EACHEYE PRN (15:40)
--- NOTE | 2024-12-22 15:47 | HISTORY AND PHYSICAL-Residence ---
History & Physical Providers to CC ~ History of Present Illness Primary Medical Doctor: Moni PLUMMER Reason for Admit\Complaint: Infectious Gastroenteritis,Fecal impaction with incontinence leakage History of Present Illness This is an 79-year-old female with a history of breast cancer s/p mastectomy presents to the ED with a chief complaint of dizziness, vomiting, diarrhea since one day. Patient speaks Cantonese and history was taken using hourly sign language interpreter services with Mr. Painting ([id number]). Patient states that she has a longstanding history of dizziness due to vertigo but has never lost consciousness and not had weakness or sensory deficits. She has had about four episodes of vomiting and four episodes of diarrhea today and was very dehydrated and felt more dizzy. She has eaten some pre heated chicken and vegetable yesterday after which the diarrhea started. She denies any abdominal pain but has abdominal discomfort. Diarrhea was watery, coffee-ground in color not associated with any blood. She also states that she has been having loss of appetite, dyspepsia since August this year and lost about 20 lb in the last three months. She has never had endoscopy or a colonoscopy before. She denies any other fever, shortness of breath, pain in any other extremities. She denies any travel or sick contacts. She denies any stroke-like symptoms, chest pain, palpitations Allergies: Coded Allergies: No Known Allergies (Unverified , 02/20/16) Home Medications Home Medications Active Reported Centrum Silver Women Tablet (Multivits-Min/Iron/FA/Lutein) 8 Mg Iron-400 Mcg-50 Mcg-300 Mcg Tablet 1 Tab PO DAILY 30 Days Refresh Tears (Artificial Tears) 0.5 % Drops 1 Drop EACHEYE Q1H 30 Days Vitamin B12 (Cyanocobalamin (Vitamin B-12)) 1,000 Mcg Tablet 1 Tab PO DAILY Calcium 600 + Vit D Caplet (Calcium Carbonate/Vitamin D3) 600 Mg Calcium-10 Mcg (400 Unit) Tablet 1 Tab PO DAILY 30 Days Glucosamine Complex-Msm Cap (Gluc Morales/Msm/Magnesium/Vit C) 1 Each Capsule 1 Each PO DAILY Family History Family History: FH: Parkinson's disease FATHER, , Age: 90, Cause: Old age Past Social History Alcohol Use: None Drug Use: None Lives with: Family Lives In: Home ROS All Other Systems: Reviewed and Negative Neurological: Reports: dizziness Exam Vitals: Vital Signs Date Time Temp Pulse Resp B/P (MAP) Pulse Ox O2 Delivery O2 Flow Rate FiO2 12/22/24 10:00 97.0 19 95/47 (63) 96 Room Air 12/22/24 06:00 86 12/20/24 21:40 0 Diagnostic Data Last Recorded Lab Results: 12/22/24 0439 12/22/24 0439 Diagnostic Data: Laboratory Tests Test 12/20/24 21:59 12/22/24 04:39 Prothrombin Time 10.3 SECONDS (9.0-12.0) INR International Normalized Ratio 1.0 INR Activated Partial Thromboplast Time 22 SECONDS (22-32) Coagulation Comments D-Dimer 0.65 MG/L FEU (0-0.50) H D-Dimer Comment Additional Plan Gastroenteritis, viral versus bacterial Dizziness secondary to vomiting, diarrhea No leukocytosis, lactic acid, procalcitonin, stool cultures, ova and parasite, stool occult are pending. 1 L lactated ringer bolus followed by maintenance fluids NS at the rate of 100 mL/hour. Lipase, TSH, BNP, LFT, RFTs are within normal limits. Patient is doing better with corre Weight loss, loss of appetite Patient may benefit from outpatient cancer workup for GI malignancy given history of breast cancer, dyspepsia and loss of appetite. Patient never had endoscopy or colonoscopy in the past Mild hypokalemia Replace per protocol History of vertigo Continue meclizine 25 p.o. t.i.d. daily Neurology was consulted by ER physician who recommended stroke workup including CT head, CTA and MRI. However there is no focal weakness or sensory deficits Re-evaluate in the a.m. and order additional imaging if dizziness is not better with hydration Code Status: DNR DVT Prophylaxis: Heparin Analgesia/Sedation: [place] p.r.n. Lines/Tubes: PIV Gi Prophylaxis: None Nutrition: Regular diet PT: Yes Prognosis: Guarded CHASIDY MATA, RES Dec 22, 2024 15:47
--- NOTE | 2024-12-22 16:54 | PROGRESS NOTE- Residence ---
Progress Note - Resident Providers to CC Resident Creating Document: CHASIDY MENDIETA RES ~ Antibiotic Timeout Antibiotic Ordered?: Yes If Yes, Indications: Viral gastrenteritis Subjective Patient had a large bowel movement today and is feeling much better today. She complained of no new symptoms today. Occult blood was negative. Objective Vital Signs Date Time Temp Pulse Resp B/P (MAP) Pulse Ox O2 Delivery O2 Flow Rate FiO2 12/22/24 10:00 97.0 19 95/47 (63) 96 Room Air 12/22/24 06:00 86 12/20/24 21:40 0 Result Diagram: 12/22/2443812/22/24438 General: Well alert, well oriented. HEENT: Conjunctive are pink, sclerae clear, no icterus, pupil is equal in both sides, reactive to light, no ear discharge, no pharyngeal erythema or an edema, mouth and lips are moist. Neck: Supple, no JVD, no lymphadenopathy and thyromegaly. 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: No focal neurological deficits, no motor and sensory weakness in all 4 extremities, could move all 4 extremities Musculoskeletal: No joint swelling, deformities, inflammations, and no scoliosis and back tenderness Skin: No active skin lesions and rashes Coagulation Studies Laboratory Tests Test 12/20/24 21:59 12/22/24 04:39 Prothrombin Time 10.3 SECONDS (9.0-12.0) INR International Normalized Ratio 1.0 INR Activated Partial Thromboplast Time 22 SECONDS (22-32) Coagulation Comments D-Dimer 0.65 MG/L FEU (0-0.50) H D-Dimer Comment Advance Care Planning Advanced Care plannin - 30 Minutes Assessment Assessment An 79-year-old cantonese and mandarin speaking female with a history of breast cancer s/p mastectomy presents to the ED with a chief complaint of dizziness, vomiting, diarrhea over one day. Plan Plan Infectious Gastroenteritis,resolved Fecal impaction with incontinence leakage Electrolytes imbalances- Mild hypokalemia,resolved Patient is feeling much better today no fever, hypokalemia is resolved Continue IV Fluid replacement Continue ciprofloxacin metronidazole-day three Follow up with the pending stool studies Dizziness secondary to vomiting, diarrhea, to Rule out CVA History of vertigo Neurology was consulted by ER physician who recommended stroke workup including CT head, CTA and MRI. Radiology report for head and neck MRA, head MRI showed no significant findings. Echo report : Overall LVEF is 75-80%. Normal LV size and wall thickness. Overall systolic function is hyperdynamic. RV is mildly dilated with normal systolic function. RVPS is estimated at 48 mmHg. Trileaflet AV appears mildly sclerotic without stenosis. Mild insufficiency. Mild MV annular calcification without stenosis. Mild regurgitation. TV appears structurally normal with moderate regurgitation. Normal PV without stenosis, physiologic insufficiency. Normal pericardium. No effusion. Continue meclizine 12.5 mg q.8 hours as needed Weight loss, loss of appetite Hx of Breast cancer, s/p mastectomy Patient may benefit from outpatient cancer workup for GI malignancy given history of breast cancer, dyspepsia and loss of appetite. Patient never had endoscopy or colonoscopy in the past Code Status: DNR DVT Prophylaxis: Heparin Analgesia/Sedation: [place] p.r.n. Lines/Tubes: PIV Gi Prophylaxis: None Nutrition: Regular diet PT: Yes Prognosis: Guarded Disposition: Continue medical management IV fluids, recommend outpatient oncology and GI follow up Chasidy Mendieta MD Internal Medicine Resident, PGY-2 Date of Service: Dec 22, 2024 Billing Provider: JESSIE SALDANA MD, GAURAV, RES Dec 22, 2024 16:54
[2024-12-22 18:00] VITALS: BP 127/64; PULSE 64; RESP 16; TEMP 97.5; O2SAT 98
[2024-12-22 20:00] VITALS: BP_SYST 119; BP_SYST 124; BP_SYST 134; BP_DIAS 60; BP_DIAS 64; PULSE 64; PULSE 65; PULSE 73; RESP 16; O2SAT 98
[2024-12-22 22:00] VITALS: BP 119/60; PULSE 71; RESP 15; TEMP 97.8; O2SAT 98
[2024-12-23] VITALS (7 sets, daily range): BP systolic 126–159; BP diastolic 65–74; PULSE 58–84; RESP 16; TEMP 97.2–98.1; O2SAT 95–99
[2024-12-23 04:45] LABS: MEAN PLATELET VOLUME 8.0 FL (7.4-10.4); RED CELL DISTRIBUTION WIDTH 14.1 % (11.5-14.5)
[2024-12-23 04:53] LABS: CREATININE 0.48 MG/DL (0.40-0.90); TOTAL CARBON DIOXIDE 24.3 MMOL/L (24-32); eCRCL 66 ML/MIN; eGFR > 90 ML/MIN
--- NOTE | 2024-12-23 17:05 | PROGRESS NOTE- Residence ---
Progress Note - Resident Providers to CC Resident Creating Document: VITOR JOVEL RES ~ Antibiotic Timeout Antibiotic Ordered?: No Subjective Patient was seen and examined at her bedside. A Cantonese back tacker was in place to help communicate with the patient. Today,patient complained of weakness and cramps of her right leg and she also complained of back pain. MRI lumbar spine has been ordered. Patient also reports of snoring at nights and waking up catching her breath and was suggested to get a sleep study in outpatient clinic. Objective Vital Signs Date Time Temp Pulse Resp B/P (MAP) Pulse Ox O2 Delivery O2 Flow Rate FiO2 12/23/24 10:00 98.1 80 16 131/65 (87) 99 Room Air 12/20/24 21:40 0 Result Diagram: 12/23/2441512/23/24415 General: Well alert, well oriented. HEENT: Conjunctive are pink, sclerae clear, no icterus, pupil is equal in both sides, reactive to light, no ear discharge, no pharyngeal erythema or an edema, mouth and lips are moist. Neck: Supple, no JVD, no lymphadenopathy and thyromegaly. 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 Chronic back pain Skin: No active skin lesions and rashes Coagulation Studies Laboratory Tests Test 12/20/24 21:59 12/22/24 04:39 Prothrombin Time 10.3 SECONDS (9.0-12.0) INR International Normalized Ratio 1.0 INR Activated Partial Thromboplast Time 22 SECONDS (22-32) Coagulation Comments D-Dimer 0.65 MG/L FEU (0-0.50) H D-Dimer Comment Advance Care Planning Advanced Care planning: Add on additional 30 min Assessment Assessment An 79-year-old cantonese and mandarin speaking female with a history of breast cancer s/p mastectomy presents to the ED with a chief complaint of dizziness, vomiting, diarrhea over one day. Plan Plan Infectious Gastroenteritis,resolved Overflow incontinence with fecal impaction Electrolytes imbalances- Mild hypokalemia,resolved Patient is feeling better today ,no fever, hypokalemia is resolved Continue IV Fluid replacement Ciprofloxacin and metronidazole have been discontinued.Culturel has been initiated. Stool studies reported normal enteric katie. Dizziness secondary to vomiting, diarrhea, to Rule out CVA History of vertigo Neurology was consulted by ER physician who recommended stroke workup including CT head, CTA and MRI. Radiology report for head and neck MRA, head MRI showed no significant findings. Echo report : Overall LVEF is 75-80%. Continue meclizine 12.5 mg q.8 hours as needed Right lowee extremity weakness,cramps and chronic back pain MRI lumbar spinal has been ordered to rule out spinal pathologies. Weight loss, loss of appetite Hx of Breast cancer, s/p mastectomy Patient may benefit from outpatient cancer workup for GI malignancy given history of breast cancer, dyspepsia and loss of appetite. Patient never had endoscopy or colonoscopy in the past. Apneic episodes while sleeping Lower extremity leg cramping Snoring while sleeping High likelihood secondary to obstructive sleep apnea Recommend a outpatient sleep study. Code Status: DNR DVT Prophylaxis: Heparin Analgesia/Sedation: [place] p.r.n. Lines/Tubes: PIV Gi Prophylaxis: None Nutrition: Regular diet PT: Yes Prognosis: Guarded Disposition: Continue medical management IV fluids, recommend outpatient oncology, GI follow up and outpatient sleep clinic. Vitor Jovel MD Internal Medicine Resident, PGY-1 Date of Service: Dec 23, 2024 Billing Provider: MEENA AGUDELO DO Common Visit Codes: 03213-[id number] INP/OBS CARE(HIGH) VITOR JOVEL, RES Dec 23, 2024 17:05 MEENA AGUDELO DO Dec 23, 2024 19:46
--- NOTE | 2024-12-24 04:14 | RADIOLOGY REPORT ---
PROCEDURE: MRI lumbar spine without contrast. INDICATION: Weakness of the right leg and back pain COMPARISON: None TECHNIQUE: MRI lumbar spine without intravenous contrast utilizing multiplanar, multisequence techni que. FINDINGS: The alignment of the lumbar spine vertebral bodies is preserved. The curvature is maintained. Bone ma rrow signal is heterogeneous. There is a circumscribed 1.2 cm lesion in the central L2 vertebral bod y with partial fat suppression on the sagittal STIR images suggestive of an atypical hemangioma. The vertebral body heights are maintained. There is intervertebral disc space narrowing most severe at L1 -L2 and L5-S1 with intervertebral disc desiccation. The conus medullaris is normal in signal characte ristics and terminates at the T12-L1 level. Paraspinal muscles are unremarkable. At the T12-L1 level, there is no evidence of central spinal canal or neuroforaminal stenosis. At the L1-L2 level, there is no evidence of central spinal canal or neuroforaminal stenosis. At the L2-L3 level, there is no evidence of central spinal canal stenosis. Mild bilateral neural for aminal stenosis. At the L3-L4 level, there is broad-based posterior disc bulge, ligamentum flavum and facet hypertroph y. There is mild canal stenosis. There is moderate bilateral neural foraminal stenosis. At the L4-L5 level, there is broad-based posterior disc bulge causing mild canal stenosis. There is m oderate bilateral neural foraminal stenosis due to facet hypertrophy. At the L5-S1 level, there is broad-based posterior disc bulge, ligamentum flavum and facet hypertroph y. There is mild canal stenosis. The disc bulge abuts the left S1 nerve root. There is moderate to severe bilateral neural foraminal stenosis. Other: T2 hyperintensity in the right kidney compatible with a cyst. IMPRESSION: 1. Multilevel lumbar spondylosis. This is most pronounced at L4-L5 where there is moderate bilateral neural foraminal stenosis and L5-S1 where there is moderate to severe bilateral neural foraminal sten osis.
[2024-12-24 04:38] LABS: MEAN PLATELET VOLUME 8.1 FL (7.4-10.4); RED CELL DISTRIBUTION WIDTH 14.1 % (11.5-14.5)
[2024-12-24 04:53] LABS: CREATININE 0.39 MG/DL (0.40-0.90); TOTAL CARBON DIOXIDE 24.8 MMOL/L (24-32); eCRCL 81 ML/MIN; eGFR > 90 ML/MIN
[2024-12-24 06:00] VITALS: BP 129/90; PULSE 67; RESP 18; TEMP 97.8; O2SAT 98
[2024-12-24] MEDS: lactobacillus rhamnosus 10,000 MMU CELLS/CAPSULE PO SCH (07:01)
[2024-12-24 07:09] LABS: EOSINOPHILS % (MANUAL) 6.0 % (0-6); LYMPHOCYTES % (MANUAL) 27.0 % (21-51); MONOCYTES % (MANUAL) 7.0 % (2-12); NEUTROPHILS % (MANUAL) 60.0 % (42-75); PLATELET ESTIMATE DECREASED
[2024-12-24] MEDS ORDERED: potassium Cl 20 mEq SR tablet PO PRN (07:30)
[2024-12-24] MEDS ORDERED: potassium Cl 40MEQ/1/2NS 520ml 520 ML IV PRN (07:30)
[2024-12-24] MEDS: potassium Cl 20 mEq SR tablet PO PRN (07:42)
[2024-12-24 08:00] VITALS: BP_SYST 116; BP_SYST 119; BP_SYST 127; BP_DIAS 56; BP_DIAS 60; BP_DIAS 65; PULSE 73; PULSE 79; PULSE 85
[2024-12-24 10:00] VITALS: BP 113/52; PULSE 69; RESP 16; TEMP 98; O2SAT 98
[2024-12-24] MEDS ORDERED: ATOR20TA66 PO ×2 (10:17→10:19)
[2024-12-24] MEDS ORDERED: POTA-208 PO ×2 (10:17→10:19)
[2024-12-24] MEDS ORDERED: PREG50CA65 PO (10:23)
--- NOTE | 2024-12-24 10:37 | DISCHARGE SUMMARY-Residence ---
Discharge Summary Providers to CC Resident Creating Document: ZENONMICHAELYVROSEVITOR, RES ~ Discharge Summary Assessment This is a 79-year-old cantonese speaking female with a history of breast cancer s/p mastectomy presents to the ED with a chief complaint of dizziness, vomiting, diarrhea since one day. Admission Diagnosis: DIZZINESS VOMITING AND DIARRHEA Hospital Course DATE OF ADMISSION: 12/20/2024 DATE OF DISCHARGE: 12/24/2024 Discharge Diagnosis\Comment: Infectious Gastroenteritis Overflow incontinence with fecal impaction Mild hypokalemia History of vertigo Dizziness Right lower extremity weakness,cramps and chronic back pain Weight loss, loss of appetite (Hx of Breast cancer, s/p mastectomy) Possible obstructive sleep apnea Operations\Procedures: None Consultants: NeurologistZEHRA GRECO DO ([facility] consultations) Complications: None Condition on DC: Stable New Medications: Atorvastatin Calcium (Atorvastatin Calcium) 20 Mg Tablet 40 MG PO DAILY for 30 Days, #60 TAB Potassium Chloride (Potassium Chloride) 20 Meq Tab.prt.sr 1 TAB PO DAILY for 15 Days, #15 TAB 0 Refills Pregabalin (Pregabalin) 50 Mg Capsule 1 CAP PO Q12H MDD 2 Capsule(s) for 30 Days, #60 CAP 0 Refills Continued Medications: Calcium Carbonate/Vitamin D3 (Calcium 600 + Vit D Caplet) 600 Mg Calcium-10 Mcg (400 Unit) Tablet 1 TAB PO DAILY for 30 Days, #60 TAB 0 Refills Carboxymethylcellulose Sodium (Refresh Tears) 0.5 % Drops 1 DROP EACHEYE Q1H for 30 Days, #15 ML 0 Refills Cyanocobalamin (Vitamin B-12) (Vitamin B12) 1,000 Mcg Tablet 1 TAB PO DAILY Gluc Morales/Msm/Magnesium/Vit C (Glucosamine Complex-Msm Cap) 1 Each Capsule 1 EACH PO DAILY, CAP Multivits-Min/Iron/FA/Lutein (Centrum Silver Women Tablet) 8 Mg Iron-400 Mcg-50 Mcg-300 Mcg Tablet 1 TAB PO DAILY for 30 Days, #30 TAB 0 Refills Discharge Summary: HPI as per admitting physician: This is a 79-year-old female with a history of breast cancer s/p mastectomy presents to the ED with a chief complaint of dizziness, vomiting, diarrhea since one day. Patient speaks Cantonese and history was taken using occupational therapy supervisor services .Patient states that she has a longstanding history of dizziness due to vertigo but has never lost consciousness and had no weakness or sensory deficits. She has had about four episodes of vomiting and four episodes of diarrhea today and was very dehydrated and felt more dizzy. She has eaten some pre heated chicken and vegetable y esterday after which the diarrhea started. She denies any abdominal pain but has abdominal discomfort. Diarrhea was watery, coffee-ground in color not associated with any blood. She also states that she has been having loss of appetite, dyspepsia since August this year and lost about 20 lb in the last three months. She has never had endoscopy or a colonoscopy before. She denies any other fever, shortness of breath, pain in any other extremities. She denies any travel or sick contacts. She denies any stroke-like symptoms, chest pain, palpitations. Hospital course: This is an 79-year-old cantonese speaking female patient who initially presented with symptoms of dizziness vomiting and diarrhea post eating some pre-heated chicken and vegetables the previous day, which pointed towards infectious gastroenteritis. She was treated with IV fluids, metronidazole and ciprofloxacin which resolved the gastroenteritis. Stool studies showed normal katie. She was also supplemented with culturell for the benefit of her gut katie. Patient also had overflow incontinence with fecal impaction, which was treated with enemas and patient eventually started feeling better after she had a huge bowel movement. Patient had repeated complaints of dizziness for which orthostatic vitals were ordered which was normal, CT head,CTA and MRI were also ordered and were negative for CVA. Patient also had her echo done to rule out cardiac causes of dizziness and her EF was 75-80%. Patient was heard complains of vertigo which was treated effectively with meclizine. During the stay patient had mild hypokalemia which was replaced and she has been discharged with potassium and has been asked to follow up with the primary care physician after a week with labs. Patient complained of right lower extremity weakness cramps and chronic back pain MRI lumbar spine was ordered to rule out spinal pathologies a cauda equina. MRI report showed multilevel lumbar spondylosis, most pronounced at L4-L5 where there is moderate bilateral neural foraminal stenosis and L5-S1 where there is moderate to severe bilateral neural foraminal stenosis. Patient is being discharged with Pregabalin 50 mg b.i.d. Patient also complained complained of apneic episodes while sleeping,lower extremity cramping and snoring while sleeping high likelihood secondary to obstructive sleep apnea and she has been asked to follow up with the an outpatient sleep study. In addition to this patient also complained of weight loss and loss of appetite She has Hx of Breast cancer, s/p mastectomy. Patient may benefit from outpatient cancer workup for malignancy,work up given history of breast cancer, dyspepsia and loss of appetite. Patient did not experience further complications throughout the entire hospital stay. Patient was seen and examined on the day of discharge. All labs, diagnostic workups, discharge plan discussed with patient in details during visit before discharge. All questions and concerns answered to both the patient and her daughter using a occupational therapy supervisor services to the best of my professional knowledge. Physical examination on discharge: General: Well alert, well oriented. HEENT: Conjunctive are pink, sclerae clear, no icterus, pupil is equal in both sides, reactive to light, no ear discharge, no pharyngeal erythema or an edema, mouth and lips are moist. Neck: Supple, no JVD, no lymphadenopathy and thyromegaly. Lungs:Equal air entry on both lungs, no additional sounds Heart: S1-S2 regular sinus rhythm and, regular rate, no gallops, no rubs, no murmurs Abdomen: No visible peristalsis, Bowel sounds present on auscultation, soft, slight tender at right lower quadrant, no guarding, no rigidity Extremities: Right lower extremity cramps and weakness,No obvious deformities, no pitting edema bilaterally, capillary refill intact, able to wiggle toes both sides, peripheral pulsations are intact on both sides SURVEYOR'S ASSISTANT: No focal neurological deficits, no motor and sensory weakness in all 4 extremities, could move all 4 extremities Musculoskeletal: No joint swelling, deformities, inflammations, and no scoliosis. Chronic back pain Skin: No active skin lesions and rashes Laboratory Tests Test 12/23/24 04:16 12/24/24 04:10 White Blood Count 3.2 X10'3 2.9 X10'3 Red Blood Count 3.50 X10'6 3.35 X10'6 Hemoglobin 11.6 g/dl 11.1 g/dl Hematocrit 33.4 % 32.3 % Mean Corpuscular Volume 95.4 FL 96.2 FL Mean Corpuscular Hemoglobin 33.0 PG 33.2 PG Mean Corpuscular Hemoglobin Concent 34.6 g/dL 34.6 g/dL Red Cell Distribution Width 14.1 % 14.1 % Platelet Count 145 X10'3 136 X10'3 Mean Platelet Volume 8.0 FL 8.1 FL Neutrophils (%) (Auto) 54.9 % 55.1 % Lymphocytes (%) (Auto) 31.5 % 28.6 % Monocytes (%) (Auto) 9.2 % 11.0 % Eosinophils (%) (Auto) 3.8 % 4.6 % Basophils (%) (Auto) 0.6 % 0.7 % Neutrophils # (Auto) 1.7 X10'3 1.6 X10'3 Lymphocytes # (Auto) 1.0 X10'3 0.8 X10'3 Monocytes # (Auto) 0.3 X10'3 0.3 X10'3 Eosinophils # (Auto) 0.1 X10'3 0.1 X10'3 Basophils # (Auto) 0.0 X10'3 0.0 X10'3 CBC Comment Sodium Level 144 MMOL/L 142 MMOL/L Potassium Level 3.5 MMOL/L 3.2 MMOL/L Chloride Level 113 MMOL/L 110 MMOL/L Carbon Dioxide Level 24.3 MMOL/L 24.8 MMOL/L Anion Gap 7 7 Blood Urea Nitrogen 11 MG/DL 8 MG/DL Creatinine 0.48 MG/DL 0.39 MG/DL Estimated GFR/1.73 m2 > 90 ML/MIN > 90 ML/MIN BUN/Creatinine Ratio 22.9 20.5 Glucose Level 98 MG/DL 100 MG/DL Calcium Level 7.9 MG/DL 7.9 MG/DL Total Bilirubin 0.4 MG/DL 0.5 MG/DL Aspartate Amino Transf (AST/SGOT) 21 U/L 53 U/L Alanine Aminotransferase (ALT/SGPT) 17 U/L 43 U/L Alkaline Phosphatase 41 IU/L 38 IU/L Total Protein 5.6 G/DL 5.1 G/DL Albumin 2.5 G/DL 2.3 G/DL Globulin 3.1 G/DL 2.8 G/DL Albumin/Globulin Ratio 0.8 0.8 Chemistry Comments Differential Total Cells Counted 100 Neutrophils % (Manual) 60.0 % Lymphocytes % (Manual) 27.0 % Monocytes % (Manual) 7.0 % Eosinophils % (Manual) 6.0 % Platelet Estimate Decreased Red Blood Cell Morphology Normal Basophilic Stippling Macrocytosis Few Advise at discharge: Follow up with PCP after a week with a CMP result for your potassium. Follow up outpatient at a sleep clinic for a sleep study. Keep yourself well hydrated. Call 911/go to the nearby ED if any emergencies Monitor for signs of dizziness,fatigue please visit ER immediately. The patient felt ready to be discharged and was medically cleared to be discharged on 12/24/2024 The patient was seen and evaluated on day of discharge. Time spent on discharge 40 minutes *Problems/Diagnosis: (1) Sciatica associated with disorder of lumbar spine Total Time Spent on D/C: > 30 Minutes Date of Service: Dec 24, 2024 Billing Provider: MEENA AGUDELO DO Common Visit Codes: 77711-OVD/OBS DISCH DAY >30min VITOR JOVEL, RES Dec 24, 2024 10:37 MEENA AGUDELO DO Dec 24, 2024 20:16
== END 2024-12-24 12:00 | disposition home or self-care (01) | DRG 249 ==
LOC: ER 21:20 → ED HOLD 12-21 01:18 → PCU 3S 12-21 02:45 → ORTHO 4S 12-21 17:00 → SUR 3N 12-22 14:40
PROVIDERS: ADMIT Internal Medicine; ATTEND Family Medicine
DX: A08.8 Other specified intestinal infections (principal); E87.6 Hypokalemia; K56.41 Fecal impaction; G47.33 Obstructive sleep apnea (adult) (pediatric); Z66 Do not resuscitate; M54.89 Other dorsalgia; M48.061 Spinal stenosis, lumbar region without neurogenic claudication; M47.896 Other spondylosis, lumbar region; R63.4 Abnormal weight loss; G89.29 Other chronic pain; Z68.21 Body mass index [BMI] 21.0-21.9, adult; Z85.3 Personal history of malignant neoplasm of breast; Z79.899 Other long term (current) drug therapy; Z90.10 Acquired absence of unspecified breast and nipple
CPT/HCPCS: 36415; 70450; 70544; 70547; 70551; 72148; 74150; 80053; 80061; 81001; 82272; 82948; 83036; 83605; 83690; 83735; 83880; 84145; 84443; 84484; 85007; 85025; 85379; 85610; 85730; 86140; 87040; 87045; 87046; 87081; 87088; 89055; 93005; 93306; 97110; 97116; 97162; 99291; G0378; J0744; J1644; J3490; J7030; J8597; Q9967